=== PATIENT | female | born 1935 | race African-American/Black ===

== ENCOUNTER 2018-12-24 09:16 | Inpatient (IN) | payer OTHER, MEDICAID ==
[~2018-12-24] VITALS: Ht 175.3 cm; Wt 68.5 kg
[2018-12-24 09:18] VITALS: BP 133/69
--- NOTE | 2018-12-24 09:18 | NUR ---
THIS NURSE CALLED PT'S DPOA, DANIELLA SIMPSON. DPOA VERBALIZED CONSENT TO TREAT PATIENT.
--- NOTE | 2018-12-24 09:20 | NUR ---
PT HAS A FENTANYL PATCH ON HER LEFT UPPER CHEST.
[2018-12-24] MEDS ORDERED: EUCERIN CREME57 GM TP (09:29)
[2018-12-24] MEDS ORDERED: DURAGESIC1 EACH TRANSDERM (09:30)
[2018-12-24] MEDS ORDERED: REMERON15 MG PO (09:31)
[2018-12-24] MEDS ORDERED: HYDRALAZINE 10M10 MG PO (09:31)
[2018-12-24] MEDS ORDERED: MIRALAX17 GM PO (09:32)
[2018-12-24] MEDS ORDERED: VITAMIN D1000 UNI1 PO (09:32)
[2018-12-24] MEDS ORDERED: FREEZE IT RE113.4 GM TOP (09:33)
[2018-12-24] MEDS ORDERED: MILK OF MA400 MG/5 M PO (09:33)
[2018-12-24] MEDS ORDERED: TYLENOL325 MG PO (09:33)
[2018-12-24] MEDS ORDERED: CARRINGTON MOIS99 G2 TOP (09:33)
[2018-12-24] MEDS ORDERED: ROXANOL (09:34)
[2018-12-24 09:36] LABS: ABSOLUTE BASOPHILS 0.1 thou/uL (0.0-0.2); ABSOLUTE LYMPHOCYTES 2.1 thou/uL (0.8-5.3); ABSOLUTE MONOCYTES 0.8 thou/uL (0.0-1.2); ABSOLUTE NEUTROPHILS 4.9 thou/uL (1.6-8.1); BASOPHILS 0.7 %; EOSINOPHILS 0.2 %; HEMATOCRIT 43.3 % (37.0-47.0); HEMOGLOBIN 13.9 gm/dL (12.0-15.0); LYMPHOCYTES 26.6 %; MCH 26.1 pg (26.0-34.0); MCHC 32.1 g/dL (28.0-37.0); MCV 81.1 fL (80.0-100.0); MONOCYTES 10.2 %; MPV 12.4 fl. (7.2-11.1); NUCLEATED RBCS 0 /100WBC; PLATELET COUNT* 176 thou/uL (150-400); POLYS 62.3 %; RBC 5.33 mil/uL (4.20-5.00); RDW-CV 13.8 % (10.5-14.5); WBC 7.9 thou/uL (4.0-11.0)
[2018-12-24 09:49] LABS: INR 1.3; PROTIME 12.8 Seconds (9.20-11.50)
[2018-12-24 09:53] LABS: ANION GAP 11 mmol/L (7-16); BUN 36 mg/dL (7-18); CALCIUM 9.9 mg/dL (8.5-10.1); CHLORIDE 123 mmol/L (98-107); CO2 28 mmol/L (21-32); CREATININE 1.3 mg/dL (0.6-1.3); GLUCOSE 139 mg/dL (70-99); POTASSIUM 3.8 mmol/L (3.5-5.1)
[2018-12-24 09:54] LABS: SODIUM 162 mmol/L (136-145)
[2018-12-24 10:03] LABS: ALBUMIN 2.9 g/dL (3.4-5.0); ALKALINE PHOSPHATASE 69 U/L (46-116); NT-PRO BRAIN NAT PEPTIDE 499 pg/mL (<300); SGOT 25 U/L (15-37); SGPT 29 U/L (30-65); TOTAL BILIRUBIN 0.5 mg/dL (<0.1-1.0); TOTAL PROTEIN 8.1 g/dL (6.4-8.2); TROPONIN-I LEVEL <0.06 ng/mL (<0.06)
[2018-12-24 10:04] LABS: BE 2.2 mmol/L (-2 to +3); PCO2 42.6 mmHg (35.0-45.0)
[2018-12-24 10:07] LABS: PO2 134.5 mmHg (75.0-100.0)
[2018-12-24 11:48] LABS: CALCIUM 9.8 mg/dL (8.5-10.1); CREATININE 1.3 mg/dL (0.6-1.3); POTASSIUM 3.6 mmol/L (3.5-5.1)
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
--- NOTE | 2018-12-24 14:39 | EKG ---
[place] [address] ELECTROCARDIOGRAM REPORT Name: SYDNEY BURDICK Room: [place] [address] ADM IN [facility]#: [id number] Admission: 12/24/18 Attend Phys: Len Vega MD Discharge: Date of : 31 Report #: [id number] THIS REPORT FOR: //name// [facility] ED Test Date: 2018-12-24 Test Time: 09:53:50 Pat Name: SYDNEY BURDICK Department: Room: [facility] Gender: F Server Assistant: RT : 1935 Requested By: Morro Pierre Order Number: [id number] MD: Merlin May Measurements Intervals [place] Rate: 96 P: 30 NC: 125 QRS: 31 QRSD: 83 T: 177 QT: 341 QTc: 431 Interpretive Statements Sinus rhythm Nonspecific repol abnormality, lateral leads No previous ECG available for comparison Electronically Signed On 12-24-2018 14:39:05 CDT by Merlin May [email or web address] <ELECTRONICALLY SIGNED> By: Merlin May MD, [facility] 12/24/18 [id number] Merlin May MD, FACC /EPI
[2018-12-24 15:30] VITALS: BP 148/75
[2018-12-24 15:32] VITALS: BP 149/68
--- NOTE | 2018-12-24 17:12 | NUR ---
PT ADMITTED TO ROOM 205 WITH DX DYSPNEA AND HYPERNATREMIA. PT IS NONVERBAL. SPOKE WITH DAUGHTER DPOA. DPOA REPORTS NONVERBAL IS BASELINE FOR PT. DPOA REPORT PT IS PUREED DIET FOR POCKETING AT THE PRISON. FAMILY NOTICED PT LOSING WEIGHT AND DECREASED APPETITE AND HAVE BEEN GIVING THE PT MECHANICAL SOFT FOODS INSTEAD. DPOA REPORTS PT HAD SWALLOW STUDY TWO WEEKS AGO AT [facility] AND PASSED. SPEECH THERAPISTS STILL URGED PUREED FOR POCKETING AND DPOA AGREED. CONCERNS PT ASPIRATED WITH MECHANICAL SOFT FOOD. WOUND NOTED TO COCCYX, WOUND NURSE CONSULTED. C/D/I MEPILEX IN PLACE. PT INCONTINENT. ED STAFF ATTEMPTED TO STRAIGHT CATH FOR UA AND PT NONCOMPLIANT AND AGITATED. NO OTHER CONCERNS AT THIS TIME. CLWR. WCTM.
[2018-12-24 19:30] VITALS: BP 143/90
[2018-12-25] VITALS: BP 140/59
[2018-12-25 04:00] VITALS: BP 143/62
[2018-12-25 05:29] LABS: ABSOLUTE BASOPHILS 0.1 thou/uL (0.0-0.2); ABSOLUTE LYMPHOCYTES 1.6 thou/uL (0.8-5.3); ABSOLUTE MONOCYTES 0.8 thou/uL (0.0-1.2); ABSOLUTE NEUTROPHILS 7.4 thou/uL (1.6-8.1); BASOPHILS 0.6 %; EOSINOPHILS 0.1 %; HEMATOCRIT 40.2 % (37.0-47.0); HEMOGLOBIN 12.7 gm/dL (12.0-15.0); LYMPHOCYTES 16.1 %; MCHC 31.7 g/dL (28.0-37.0); MCV 82.1 fL (80.0-100.0); MONOCYTES 8.5 %; MPV 12.3 fl. (7.2-11.1); NUCLEATED RBCS 0 /100WBC; PLATELET COUNT* 136 thou/uL (150-400); POLYS 74.7 %; RDW-CV 13.8 % (10.5-14.5); WBC 9.9 thou/uL (4.0-11.0)
[2018-12-25 05:31] LABS: CALCIUM 9.2 mg/dL (8.5-10.1); CREATININE 1.1 mg/dL (0.6-1.3); MAGNESIUM 2.1 mg/dL (1.8-2.4); POTASSIUM 3.7 mmol/L (3.5-5.1)
--- NOTE | 2018-12-25 06:35 | NUR ---
VSS. SEE MAR. SEE CHARTING. FALL PRECAUTIONS IN PLACE. HOURLY ROUNDING FOR SAFETY.
[2018-12-25 08:00] VITALS: BP 130/52
--- NOTE | 2018-12-25 11:21 | NUR ---
Pt is a non verbal LTC resident at [facility] on their memory care unit. REN spoke with Destini, admissions at [facility]. Destini notes that Pt has had a gradual decline in her health, Destini to determine the timeline of decline and let CM know. Destini stated that Pt was able to walk with assist and speak minimally, but stated that that has changed. Destini also mentioned that Pt does not eat very much, if at all. Destini states that they have attempted to broach hospice with the family, but family has not been ready to pursue that. REN spoke with Pt's son, Andrez, he informed that Pt's dtr, Yazmin, is the DPOA. CM left for dtr. Per Andrez, the plan is for Pt to return [facility]. Following [facility] [place] p:[phone], f:[phone]
--- NOTE | 2018-12-25 11:23 | NUR ---
ASSUMED PT CARE AT 0800, PT NON VERBAL, AWAKE, O2 SAT 90'S RA. TRACING SR ON SEA FOAM KISS MAKER. PT INCONTINENT OF URINE. NPO, FOR SPEECH THERAPHY AND XR SWALLOWING. PT Q2 TURN, OPEN SORE ON COCCYX AREA NOTED. VSS, AM ASSESSMENT CHARTED. HOURLY ROUNDING, WILL CONTINUE TO MONITOR.
[2018-12-25 12:13] VITALS: BP 160/74
[2018-12-25 16:00] VITALS: BP 130/70; BP 76/57
--- NOTE | 2018-12-25 16:17 | NUR ---
SEEN FOR BEDSIDE SWALLOW EVAL EARLIER THIS DATE. CONTINUE NPO STATUS 2' MOD-SEVERE OROPHARYNGEAL DYSPHAGIA. PT'S DYSPHAGIA IS RELATED TO DEMENTIA. PT EXHIBITED POOR ORAL AWARENESS AND OROPHARYNGEAL SENSITIVITY. PT UNABLE TO FOLLOW SIMPLE DIRECTIONS, INCLUDING TO SWALLOW BOLUS HELD IN MOUTH. PT EXHIBITED INCONSISTENT SWALLOW TRIGGER RESPONSE - X1 TIMELY SWALLOW TRIGGER AND ALL OTHER SWALLOWS EITHER SEVERELY DELAYED OR ABSENT. SUSPECT SWALLOWING DYSFUNCTION WILL NOT IMPROVE 2' DEMENTIA AND DECLINING MEDICAL STATE. DISCUSSION WITH THE FAMILY NEEDS TO BE HELD TO DETERMINE ALTERNATIVE OPTIONS FOR NUTRITION. PEG TUBE PLACEMENT MAY NOT IMPROVE QUALITY OF LIFE OR MEDICAL STATUS. PLEASURE FEEDINGS, WITH FAMILY EDUCATION AND CONSENT, MAY BE ANOTHER APPROPRIATE OPTION.
[2018-12-25 20:00] VITALS: BP 137/44
[2018-12-26 00:51] VITALS: BP 144/49
[2018-12-26 02:10] LABS: GLYCOHEMOGLOBIN (HGB A1C) 6.2 % (4.8-5.6)
[2018-12-26 04:00] VITALS: BP 137/52
[2018-12-26 05:02] LABS: ABSOLUTE BASOPHILS 0.1 thou/uL (0.0-0.2); ABSOLUTE MONOCYTES 0.8 thou/uL (0.0-1.2); ABSOLUTE NEUTROPHILS 7.6 thou/uL (1.6-8.1); BASOPHILS 0.7 %; EOSINOPHILS 0.3 %; HEMATOCRIT 37.2 % (37.0-47.0); HEMOGLOBIN 11.8 gm/dL (12.0-15.0); LYMPHOCYTES 18.8 %; MCH 25.8 pg (26.0-34.0); MCHC 31.7 g/dL (28.0-37.0); MCV 81.3 fL (80.0-100.0); MONOCYTES 7.9 %; MPV 12.8 fl. (7.2-11.1); NUCLEATED RBCS 0 /100WBC; PLATELET COUNT* 117 thou/uL (150-400); POLYS 72.3 %; RBC 4.58 mil/uL (4.20-5.00); RDW-CV 13.8 % (10.5-14.5); WBC 10.5 thou/uL (4.0-11.0)
[2018-12-26 05:10] LABS: CALCIUM 9.2 mg/dL (8.5-10.1); POTASSIUM 3.2 mmol/L (3.5-5.1)
--- NOTE | 2018-12-26 07:37 | NUR ---
ASSUMED PT CARE AT 1930. ASSESSMENT COMPLETED CHARTED. UNABLE TO MAKE NEEDS KNOWN, NONVERBAL. [id number] COMPLETED CHARTED. NO APPARENT PAIN NOTED. VSS. PT RESTING IN BED AT THIS TIME. WILL CONTINUE TO MONITOR.
[2018-12-26 08:00] VITALS: BP 126/60
--- NOTE | 2018-12-26 13:39 | NUR ---
Spoke with KVNG [facility] in agreement with hospice at [place]. REN contacted Destini at [facility] and updated on POC, [facility] primarily uses [place]. CM contacted KVNG, KVNG is at work and requested that CM contact her in the AM to discuss further. Per , plan [place] back to [facility] tomorrow. Following.
--- NOTE | 2018-12-26 13:55 | NUR ---
ASSUMED PT CARE AT 0800, AWAKE, NONVERBAL, O2 SAT 90'S RA. TRACING SR ON MONITOR. PT Q2 TURN, OPEN SORE ON COCCYX NOTED. PT NPO. PT ON IV FLUIDS, ACCU CHECK. VSS, AM ASSESSMENT CHARTED. HOURLY ROUNDING, CALL LIGHT WITHIN REACH WILL CONTINUE TO MONITOR.
--- NOTE | 2018-12-26 15:01 | NUR ---
PATIENT SEEN PERTAINING TO NEED FOR ASSESSMENT OF COCCYGEAL LESION WHICH PRESENTS CIRCIFORM LESION MEASURING 1.0 X 1.0 X 0.1 CM. CONTAINS PALE PINK TISSUE IN THE WOUND BED AND SMALL AMOUNT OF SEROUS DRAINAGE PRESENT. THERE IS NO PERIWOUND REDNESS, WARMTH, OR INDURATION NOTED. PATIENT WAS INCONTINENT OF URINE AND FECES, SO PATIENT WAS CLEANSED WITH WIPES, AND REPOSITIONED ON HER LEFT SIDE AFTERWARDS. THE WOUND WAS ALSO CLEANSED, THEN APPLIED AQUACEL AG UNDER A BORDERED FOAM DRESSING. RECOMMEND SIDE TO SIDE REPOSITIONING ONLY. PATIENT IS NOT VERBALIZING TO THIS NUSE.
--- NOTE | 2018-12-26 15:07 | NUR ---
I have reviewed the documentation by [facility] from 12/25/18 to 12/25/18 and I concur with it. BORA TORRES
[2018-12-26 16:13] VITALS: BP 118/46
--- NOTE | 2018-12-26 16:19 | NUR ---
I have reviewed the documentation by [facility] from TODAY to 12/26/18 and I concur with it. BORA TORRES
[2018-12-26 20:00] VITALS: BP 145/56
[2018-12-27] VITALS: BP 144/58
[2018-12-27 03:59] VITALS: BP 146/72
[2018-12-27 04:42] LABS: CALCIUM 8.7 mg/dL (8.5-10.1); CREATININE 0.8 mg/dL (0.6-1.3); POTASSIUM 3.2 mmol/L (3.5-5.1)
[2018-12-27 08:00] VITALS: BP 166/85
--- NOTE | 2018-12-27 08:10 | NUR ---
ASSUMED PT CARE AT 1930. ASSESSMENT COMPLETED CHARTED. PT NONVERBAL AND DOESNT RESPOND TO EVEN YES OR NO QUESTIONS EVEN IF AWAKE. NO S/SX OF PAIN OR DISCOMFORT. [id number] COMPLETED CHARTED. WILL CONTINUE TO MONITOR.
[2018-12-27 11:30] VITALS: BP 162/24
[2018-12-27] MEDS ORDERED: CIPRO500 MG PO (11:33)
--- NOTE | 2018-12-27 11:36 | NUR ---
REN discussed hospice with Pt's dtr today, in agreement and wants to use [facility]. REN contacted Nica at [facility], she will be here between 1130-12 to assess, Updated nurse and Anticipate that Pt will be ready to dc back to [facility] today with [facility]. Following.
[2018-12-27] MEDS ORDERED: NORVASC10 MG PO (12:26)
--- NOTE | 2018-12-27 12:32 | NUR ---
Pt is discharging back to today with [facility] hospice. Faxed dc orders. Chart copied. Nurse report number is [phone]. Updated nurse and Pt's dtr. Ambulance to [facility] around 3pm.
[2018-12-27] MEDS ORDERED: CALCIUM CARBON600 MG PO (12:46)
[2018-12-27] MEDS ORDERED: LOPRESSOR50 PO (12:46)
[2018-12-27] MEDS ORDERED: FUROSEMIDE 20 M20 M1 PO (12:46)
[2018-12-27] MEDS ORDERED: VOLTAREN GEL 1100 G2 TOP (12:47)
[2018-12-27 13:42] VITALS: BP 162/24
[2018-12-27] MEDS ORDERED: KLOR-CON 1010 MEQ PO (13:48)
--- NOTE | 2018-12-27 15:33 | NUR ---
ASSUMED PT CARE AT 0800, MORE AWAKE TODAY, NONVERBAL, O2 SAT 90'S RA, TRACING SR ON TELE. PT FOR DISCHARGE BACK TO [facility], GIVE REPORT TO FRANCOISE. IV, TELE REMOVED. LEFT THE UNIT AT 1500 VIA EMS.
== END 2018-12-27 15:05 | disposition hospice, home (50) | DRG 189 ==
LOC: M.ERS 09:16 → M.TBA-ER 12:15 → M.2W 12:15
PROVIDERS: Family Medicine; ADMIT Family Medicine
DX: J96.00 Acute respiratory failure, unspecified whether with hypoxia or hypercapnia (principal); G93.41 Metabolic encephalopathy; R65.11 Systemic inflammatory response syndrome (SIRS) of non-infectious origin with acute organ dysfunction; E87.0 Hyperosmolality and hypernatremia; F11.20 Opioid dependence, uncomplicated; N39.0 Urinary tract infection, site not specified; E86.0 Dehydration; N18.9 Chronic kidney disease, unspecified; G30.9 Alzheimer's disease, unspecified; F02.80 Dementia in other diseases classified elsewhere, unspecified severity, without behavioral disturbance, psychotic disturbance, mood disturbance, and anxiety; I12.9 Hypertensive chronic kidney disease with stage 1 through stage 4 chronic kidney disease, or unspecified chronic kidney disease; F41.9 Anxiety disorder, unspecified; M19.90 Unspecified osteoarthritis, unspecified site; L89.152 Pressure ulcer of sacral region, stage 2; G89.29 Other chronic pain; M54.9 Dorsalgia, unspecified; M25.569 Pain in unspecified knee; E87.6 Hypokalemia; Z88.1 Allergy status to other antibiotic agents; Z79.899 Other long term (current) drug therapy